=== PATIENT | male | born 1975 | race Caucasian/White ===

== ENCOUNTER 2017-03-10 16:56 | Emergency (ER) | payer BC, OTHER ==
[2017-03-10] MEDS ORDERED: Sodium Chloride 0.9% 10 ML Syringe FLUSH PRN (17:12)
[2017-03-10] MEDS ORDERED: GI Cocktail Oral Solution 30 ML PO ONE (17:18)
[2017-03-10] MEDS ORDERED: Nitroglycerin 0.4 MG Tab.SL SL ONE (17:20)
--- NOTE | 2017-03-10 17:34 | EDM.PDOC ---
ED HPI GENERAL MEDICAL PROBLEM - General Chief Complaint: Chest Pain Stated Complaint: chest pain Time Seen by Provider: 03/10/17 17:12 Source of Information: Reports: Patient History Limitations: Reports: No Limitations - History of Present Illness INITIAL COMMENTS - FREE TEXT/NARRATIVE: Centralized chest discomfort, described more or less as a "fullness", that has been present since last night. Persisted overall unchanged through today. Drinking water may have helped it at one time. No change with activity vs rest. Not much food intake today, overall no change noted with eating. No SOB but lungs feel "blount" when he takes deep breath. No radiation of the pain. Denies having pain like this in past. History of diabetes and treated for elevated lipids. Past medical history unremarkable otherwise. Family history--father had cardiac problems in his 70s. Denies recent illness of injury. No sweating. No GI complaints such as nausea/ emesis/bowel changes. No discomfort anywhere else. Denies cough. No other complaints.[place] at gym suggested he come to ER to be checked out. Does report increased stress over the last few days. 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 Mid-Sternal Chest Pain Score (Numeric/FACES): 1 - Related Data Allergies Allergy/AdvReac Type Severity Reaction Status Date / Time No Known Allergies Allergy Verified 03/10/17 16:57 Home Meds: Home Meds Lisinopril 10 mg PO DAILY 03/10/17 [History] Pantoprazole Sodium [Protonix] 20 mg PO DAILY #14 tablet. 03/10/17 [Rx] atorvaSTATin [Lipitor] 10 mg PO BEDTIME 03/10/17 [History] metFORMIN HCl [Metformin HCl] 2,000 mg PO BID 03/10/17 [History] Past Medical History Cardiovascular History: Reports: High Cholesterol Endocrine/Metabolic History: Reports: Diabetes, Type II Social & Family History - Tobacco Use Smoking Status *Q: Never Smoker - Alcohol Use Days Per Week of Alcohol Use: 1 ED ROS GENERAL - Review of Systems Review Of Systems: See Below Constitutional: Reports: No Symptoms. Denies: Fever, Chills, Malaise, Weakness , Fatigue, Night Sweats, Diaphoresis, Decreased Appetite HEENT: Reports: No Symptoms Respiratory: Reports: Pleuritic Chest Pain (somewhat pleuritic component to pain complaint. See HPI). Denies: Shortness of Breath, Wheezing, Cough, Sputum , Hemoptysis Cardiovascular: Reports: Chest Pain (see HPI). Denies: Dyspnea on Exertion, Edema, Lightheadedness, Orthopnea, Palpitations, PND, Syncope Endocrine: Reports: No Symptoms GI/Abdominal: Reports: No Symptoms. Denies: Abdominal Pain, Nausea : Reports: No Symptoms Musculoskeletal: Reports: No Symptoms Skin: Reports: No Symptoms Neurological: Reports: No Symptoms Psychiatric: Reports: No Symptoms ED EXAM, GENERAL - Physical Exam Exam: See Below Exam Limited By: No Limitations General Appearance: Alert, WD/WN, No Apparent Distress Eye Exam: Bilateral Eye: EOMI, Normal Inspection, PERRL Ears: Normal External Exam Nose: Normal Inspection, Normal Mucosa, No Blood Throat/Mouth: Normal Inspection, Normal Lips, Normal Teeth, Normal Oropharynx, Normal Voice, No Airway Compromise Head: Atraumatic, Normocephalic Neck: Normal Inspection, Supple, Non-Tender, Full Range of Motion. No: Lymphadenopathy (L), Lymphadenopathy (R) Respiratory/Chest: No Respiratory Distress, Lungs Clear, Normal Breath Sounds, No Accessory Muscle Use, Chest Non-Tender Cardiovascular: Normal Peripheral Pulses, Regular Rate, Rhythm, No Edema, No Murmur Peripheral Pulses: 2+: Radial (L), Radial (R) GI/Abdominal: Normal Bowel Sounds, Soft, Non-Tender, No Distention, No Abnormal Bruit, No Mass (Male) Exam: Deferred Rectal (Males) Exam: Deferred Extremities: Normal Inspection, Normal Range of Motion, Non-Tender, No Pedal Edema, Normal Capillary Refill Neurological: Alert, Oriented, Normal Cognition, Normal Gait, No Motor/Sensory Deficits Psychiatric: Normal Affect, Normal Mood Skin Exam: Warm, Intact, Normal Color EKG INTERPRETATION EKG Date: 03/10/17 Time: 17:15 Rhythm: NSR Rate (beats/min): 70 [place]: normal P-wave: present QRS: normal (slightly ab) ST-T: other (mild elevation noted inferior leads.) Comparison: NA - no prior EKG Course - Vital Signs Last Recorded V/S: Last Vital Signs Temp 37.1 C 03/10/17 17:57 Pulse 78 03/10/17 18:44 Resp 13 03/10/17 18:44 BP 99/69 03/10/17 18:44 Pulse Ox 98 03/10/17 18:44 - Orders/Labs/Meds Orders: Active Orders 24 hr Category Date Time Status EKG Documentation Completion [RC] ASDIRECTED Care 03/10/17 18:04 Active Chest 2V [CR] Stat Exams 03/10/17 17:13 Taken Sodium Chloride 0.9% [Saline Flush] Med 03/10/17 17:12 Active 10 ml FLUSH ASDIRECTED PRN Saline Lock Insert [OM.PC] Stat Oth 03/10/17 17:13 Ordered Medication Orders Sodium Chloride (Saline Flush) 10 ml FLUSH ASDIRECTED PRN PRN Reason: Keep Vein Open Labs: Laboratory Tests 03/10/17 03/10/17 03/10/17 Range/Units 17:35 17:35 17:35 WBC 8.0 (4.0-10.2) K/uL RBC 4.72 (4.33-5.41) M/uL Hgb 14.9 (13.1-16.8) g/dL Hct 42.4 (39.0-49.0) % MCV 89.8 (84.0-98.0) fL MCH 31.6 (28.2-33.3) pg MCHC 35.1 (31.7-36.0) g/dL RDW 12.2 (11.2-14.1) % Plt Count 183 (150-350) K/uL Neut % (Auto) 67.8 (45.0-80.0) % Lymph % (Auto) 20.4 (10.0-50.0) % [place] % (Auto) 9.9 (2.0-14.0) % Eos % (Auto) 0.9 (0.0-5.0) % Baso % (Auto) 1.0 (0.0-2.0) % Neut # (Auto) 5.39 (1.40-7.00) K/uL Lymph # (Auto) 1.62 (0.50-3.50) K/uL [place] # (Auto) 0.79 (0.00-1.00) K/uL Eos # (Auto) 0.07 (0.00-0.50) K/uL Baso # (Auto) 0.08 (0.00-0.20) K/uL PT 10.7 (9.8-11.7) SEC INR 1.0 D-Dimer, Quantitative (0-400) ng/mL Sodium 139 (136-145) mmol/L Potassium 4.4 (3.5-5.1) mmol/L Chloride 102 (98-107) mmol/L Carbon Dioxide 28.3 (21.0-32.0) mmol/L BUN 15 (7-18) mg/dL Creatinine 0.93 (0.51-1.17) mg/dL Est Cr Clr Drug Dosing 133.77 mL/min Estimated GFR (MDRD) > 60 mL/min Glucose 124 H (74-106) mg/dL Calcium 9.1 (8.5-10.1) mg/dL Total Bilirubin 1.2 H (0.2-1.0) mg/dL AST 14 L (15-37) U/L ALT 37 (12-78) U/L Alkaline Phosphatase 80 (46-116) IU/L Creatine Kinase 59 (26-308) U/L Creatine Kinase Index 1.5 (0.0-2.5) % CK-MB (CK-2) 0.90 (0.00-3.60) ng/mL Troponin I 0.000 (0.000-0.056) ng/mL Total Protein 7.2 (6.4-8.2) g/dL Albumin 4.2 (3.4-5.0) g/dL Specimen Type Urine Color Urine Appearance Urine pH (5.0-9.0) Ur Specific [place] (1.005-1.030) Urine Protein (NEGATIVE) mg/dL Urine Glucose (UA) (NEGATIVE) mg/dL Urine Ketones (NEGATIVE) mg/dL Urine Occult Blood (NEGATIVE) Urine Nitrite (NEGATIVE) Urine Bilirubin (NEGATIVE) Urine Urobilinogen (0.2-1.0) E.U./dL Ur Leukocyte Esterase (NEGATIVE) Urine RBC /HPF Urine WBC /HPF Ur Epithelial Cells /LPF Urine Bacteria (NONE TO FEW) /HPF Urine Mucus (NEGATIVE) /LPF 03/10/17 03/10/17 Range/Units 17:35 17:50 WBC (4.0-10.2) K/uL RBC (4.33-5.41) M/uL Hgb (13.1-16.8) g/dL Hct (39.0-49.0) % MCV (84.0-98.0) fL MCH (28.2-33.3) pg MCHC (31.7-36.0) g/dL RDW (11.2-14.1) % Plt Count (150-350) K/uL Neut % (Auto) (45.0-80.0) % Lymph % (Auto) (10.0-50.0) % [place] % (Auto) (2.0-14.0) % Eos % (Auto) (0.0-5.0) % Baso % (Auto) (0.0-2.0) % Neut # (Auto) (1.40-7.00) K/uL Lymph # (Auto) (0.50-3.50) K/uL [place] # (Auto) (0.00-1.00) K/uL Eos # (Auto) (0.00-0.50) K/uL Baso # (Auto) (0.00-0.20) K/uL PT (9.8-11.7) SEC INR D-Dimer, Quantitative < 100 (0-400) ng/mL Sodium (136-145) mmol/L Potassium (3.5-5.1) mmol/L Chloride (98-107) mmol/L Carbon Dioxide (21.0-32.0) mmol/L BUN (7-18) mg/dL Creatinine (0.51-1.17) mg/dL Est Cr Clr Drug Dosing mL/min Estimated GFR (MDRD) mL/min Glucose (74-106) mg/dL Calcium (8.5-10.1) mg/dL Total Bilirubin (0.2-1.0) mg/dL AST (15-37) U/L ALT (12-78) U/L Alkaline Phosphatase (46-116) IU/L Creatine Kinase (26-308) U/L Creatine Kinase Index (0.0-2.5) % CK-MB (CK-2) (0.00-3.60) ng/mL Troponin I (0.000-0.056) ng/mL Total Protein (6.4-8.2) g/dL Albumin (3.4-5.0) g/dL Specimen Type Urinvoid Urine Color Yellow Urine Appearance Clear Urine pH 6.0 (5.0-9.0) Ur Specific [place] 1.020 (1.005-1.030) Urine Protein Negative (NEGATIVE) mg/dL Urine Glucose (UA) Negative (NEGATIVE) mg/dL Urine Ketones Negative (NEGATIVE) mg/dL Urine Occult Blood Negative (NEGATIVE) Urine Nitrite Negative (NEGATIVE) Urine Bilirubin Negative (NEGATIVE) Urine Urobilinogen 0.2 (0.2-1.0) E.U./dL Ur Leukocyte Esterase Negative (NEGATIVE) Urine RBC 0-5 /HPF Urine WBC 0-5 /HPF Ur Epithelial Cells Not seen /LPF Urine Bacteria Rare (NONE TO FEW) /HPF Urine Mucus Few H (NEGATIVE) /LPF Meds: Medications Generic Name Dose Route Start Last Admin Trade Name Freq PRN Reason Stop Dose Admin Sodium Chloride 10 ml 03/10/17 17:12 Saline Flush FLUSH ASDIRECTED PRN Keep Vein Open Discontinued Medications Generic Name Dose Route Start Last Admin Trade Name Freq PRN Reason Stop Dose Admin Al Hydroxide/Mg Hydroxide 30 ml 03/10/17 17:18 03/10/17 17:39 Gi Cocktail PO 03/10/17 17:19 30 ml ONETIME ONE Administration Pantoprazole Sodium 40 mg/ 100 mls @ 200 mls/hr 03/10/17 18:10 03/10/17 18:45 Sodium Chloride IV 03/10/17 18:39 Not Given ONETIME ONE Ketorolac Tromethamine 30 mg 03/10/17 18:10 03/10/17 18:24 Toradol IVPUSH 03/10/17 18:11 30 mg ONETIME ONE Administration Nitroglycerin 0.4 mg 03/10/17 17:20 03/10/17 17:52 Nitrostat SL 03/10/17 17:21 0.4 mg ONETIME ONE Administration Pantoprazole Sodium 40 mg 03/10/17 18:23 03/10/17 18:24 Protonix Iv IVPUSH 03/10/17 18:24 40 mg ONETIME ONE Administration - Radiology Interpretation Free Text/Narrative:: chest film unremarkable - Re-Assessments/Exams Free Text/Narrative Re-Assessment/Exam: Patient's feeling of discomfort improved from 3 to 2 with GI cocktail, and from 2 to 1 with Nitro. Labs completely unremarkable, including troponin, CKMB, and DDimer. EKG did show mild ST elevation in inferior leads. Notched R wave noted in II and AVF. No prior EKG for comparison. Given patient's pain being of same intensity for 24 hours despite activity vs rest, improvement after drinking water, normal cardiac labs, improvement with GI cocktail, and history/exam, suspect most likely this is due to GI cause. Cannot fully rule out cardiac/musculo-skeletal/pulmonary cause however. Protonix given. Patient remained comfortable. Plan at this time is to discharge patient home and have him continue to use Protonix for the next two weeks. He is to follow up with primary provider and see if they would like to arrange stress test to more fully rule out possible cardiac contribution. Extensive precautions reviewed prior to discharge. He is to return to the ER if any worsening is noted. Departure - Departure Time of Disposition: 19:08 Disposition: Home, Self-Care 01 Condition: good Clinical Impression: Atypical chest pain Prescriptions: Pantoprazole Sodium [Protonix] 20 mg PO DAILY #14 tablet.dr Instructions: Nonspecific Chest Pain, [id number] Referrals: Reginaldo Bardales PA [Primary Care Provider] - Forms: ED Department Discharge Additional Instructions: Call your primary provider tomorrow and see if they would like to arrange any followup testing such as stress test. Take Protonix once daily for the next two weeks. See if pain returns. If it does, follow up for recheck. Return to ER if sudden worsening is noted, especially if you note any shortness of breath or sweating. At this time this appears most likely to be due to your GI system. However further evaluation may be needed if symptoms continue. - My Orders Last 24 Hours: My Active Orders 03/10/17 17:12 Sodium Chloride 0.9% [Saline Flush] 10 ml FLUSH ASDIRECTED PRN 03/10/17 17:13 Chest 2V [CR] Stat Saline Lock Insert [OM.PC] Stat 03/10/17 18:04 EKG Documentation Completion [RC] ASDIRECTED - Assessment/Plan Last 24 Hours: My Active Orders 03/10/17 17:12 Sodium Chloride 0.9% [Saline Flush] 10 ml FLUSH ASDIRECTED PRN 03/10/17 17:13 Chest 2V [CR] Stat Saline Lock Insert [OM.PC] Stat 03/10/17 18:04 EKG Documentation Completion [RC] ASDIRECTED
[2017-03-10 18:04] LABS: CHLORIDE,CL 102 mmol/L (98-107); SODIUM,NA 139 mmol/L (136-145)
[2017-03-10] MEDS ORDERED: Ketorolac 30 MG/ML SDV IVPUSH ONE (18:10)
[2017-03-10] MEDS ORDERED: Pantoprazole 40 MG in Sodium Chloride 0.9% 100 ML IV ONE (18:10)
[2017-03-10] MEDS ORDERED: Pantoprazole 40 MG Vial IVPUSH ONE (18:23)
[2017-03-10 21:21] VITALS: BP 114/68
== END 2017-03-10 19:55 | disposition home or self-care (01) ==
LOC: LL.ED 16:56
DX: R07.89 Other chest pain (principal); E11.9 Type 2 diabetes mellitus without complications; E78.00 Pure hypercholesterolemia, unspecified; Z79.899 Other long term (current) drug therapy
CPT/HCPCS: 36415; 71020; 80053; 81001; 82550; 82553; 84484; 85025; 85379; 85610; 93005; 96374; 96375; 99285; A9270; C9113; J1885